=== PATIENT | female | born 1930 | race Caucasian/White ===

== ENCOUNTER → 2018-06-18 | Outpatient (CLI) | payer MEDICARE ==
[2013-08-09 10:25] VITALS: BP 158/71
[~2018-06-18] MED LIST: ASCO500T55 PO; ASPI-482 PO; ATOR20TA PO; CALC1TAB75 PO; LOSA25TA54 PO; MULT-658 PO; OMEP20CA10 PO
--- NOTE | 2018-06-18 13:05 | KCIC ---
Bilateral digital screening mammograms with 3-D tomosynthesis: Reason for examination: Routine screening. No previous examinations available for comparison. New baseline. Bilateral mammograms in CC and oblique projections were obtained with 2-D imaging and 3-D tomosynthesis imaging on a Siemens Inspiration unit and reviewed on the workstation. Interpretation was made with the benefit of CAD. The skin and nipples show no abnormalities. No abnormal axillary lymph nodes are seen. The breast parenchyma shows scattered fatty and fibroglandular density. (Breast density: Category B.) There appears to be some nodular asymmetry present in the right breast at the 12:00 and 10:00 positions anteriorly. Recommend further evaluation with coned compression views in CC and lateral projections and right breast ultrasound. There are no other dominant masses, suspicious calcifications or architectural distortion. Impression: Nodular asymmetries anteriorly in the right breast. Recommend further evaluation with coned compression views and ultrasound. BI-RADS Category 0: Incomplete. Needs additional imaging evaluation. "Our facility is accredited by the [employer] Mammography [employer]." This patient's information has been entered into a reminder system for the patient to be notified with the results of her examination and a target date for the next mammogram. Electronically signed by: Grace Hinton MD (06/18/2018 1:02 PM) [id number]
== END | disposition home or self-care (01) ==
LOC: KCIC MAMMO 11:45
PROVIDERS: ATTEND Family Medicine
DX: Z12.31 Encounter for screening mammogram for malignant neoplasm of breast (principal)
CPT/HCPCS: 77063; 77067

== ENCOUNTER → 2018-06-26 | Outpatient (CLI) | payer MEDICARE ==
[2013-08-09 10:25] VITALS: BP 158/71
--- NOTE | 2018-06-26 14:15 | KCIC ---
Right breast diagnostic digital mammograms: Reason for examination: Nodularity to the parenchyma on screening mammogram. Comparison is made to a new baseline examination dated 06/18/2018. Cone compression views were obtained in CC and lateral projections. With these additional views, the areas of nodularity appear to represent patches of superimposed fibroglandular tissue. Further evaluation with ultrasound will follow. IMPRESSION: No suspicious abnormalities with the additional views. Ultrasound to follow. BI-RADS Category 0: Incomplete. Needs additional imaging evaluation. Right breast ultrasound: Ultrasound examination was performed with attention to the upper outer quadrant and axilla. There is some patchy fibroglandular tissue with some minimal fibrocystic changes. No suspicious nodules are seen. No abnormal appearing lymph nodes are seen in the axilla. IMPRESSION: Minimal fibrocystic changes at the 10:00 position with no suspicious abnormality seen in the right breast. Recommend routine mammographic follow-up. BI-RADS Category 2: Benign. "Our facility is accredited by the [employer] Mammography [employer]." This patient's information has been entered into a reminder system for the patient to be notified with the results of her examination and a target date for the next mammogram. Electronically signed by: Grace Hinton MD (06/26/2018 2:11 PM) [id number]
== END | disposition home or self-care (01) ==
LOC: KCIC MAMMO 08:48
PROVIDERS: ATTEND Family Medicine
DX: R92.8 Other abnormal and inconclusive findings on diagnostic imaging of breast (principal); Z88.0 Allergy status to penicillin
CPT/HCPCS: 76641; 77065

== ENCOUNTER → 2020-08-14 | Outpatient (CLI) | payer MEDICARE ==
[2013-08-09 10:25] VITALS: BP 158/71
[~2020-08-14] MED LIST changes: +CALC-627 PO; -CALC1TAB75 PO; -OMEP20CA10 PO; +OMEP20CA16 PO
--- NOTE | 2020-08-14 13:44 | RAD ---
EXAM: Carotid Doppler sonogram. HISTORY: Stroke. Atherosclerosis. Stenosis. TECHNIQUE: Cummings scale and color Doppler sonographic evaluation of the neck with spectral waveform prem lysis was performed and static images are submitted for review. FINDINGS: The peak systolic velocity within the right common carotid artery is 87 cm/sec. The peak sy stolic velocity within the right internal carotid artery is 73 cm/sec and the end diastolic velocity within the right internal carotid artery is 15 cm/sec. The right ICA/CCA ratio is 0.83. The peak systolic velocity within the left common carotid artery is 99 cm/sec. The peak systolic [place] within the left internal carotid artery is 78 cm/sec and the end diastolic velocity within the l eft internal carotid artery is 16 cm/sec. The left ICA/CCA ratio is 0.80. There is normal antegrade flow within both vertebral arteries. IMPRESSION: No Doppler evidence of greater than 50 percent stenosis involving the internal carotid ar teries. PQRS Compliance Statement - Stenosis calculations for CT, MR and conventional angiography are based u fidelia measurement of the distal ICA diameter in accordance with the NASCET methodology. Stenosis calcu lations for carotid ultrasound studies are derived from validated velocity criteria which are known t o correlate with the NASCET methodology. Electronically signed by: Dia Sanders MD (08/14/2020 1:42 PM) [facility]
--- NOTE | 2020-08-14 16:51 | CARD ---
MR#: [id number] Date of Study: 08/14/2020 Ordering Physician: MONIQUE LEOS, Referring Physician: MONIQUE LEOS, Tech: Catrina Jamesалександр, [facility] APPROVED REPORT EXAM: Two-dimensional and M-mode echocardiogram with Doppler and color Doppler. Other Information Quality : AverageHR: 79bpm INDICATION CVA/TIA RISK FACTORS Hypertension Hyperlipidemia 2D DIMENSIONS RVDd2.7 (2.9-3.5cm)Left Atrium(2D)3.2 (1.6-4.0cm) IVSd1.0 (0.7-1.1cm)Aortic Root(2D)2.9 (2.0-3.7cm) LVDd4.3 (3.9-5.9cm)LVOT Diameter2.0 (1.8-2.4cm) PWd0.9 (0.7-1.1cm)LVDs2.6 (2.5-4.0cm) FS (%) 40.0 %SV60.2 ml LVEF(%)70.9 (>50%) Aortic Valve AoV Peak Ben.122.1cm/sAoV VTI25.2cm AO Peak GR.6.0mmHgLVOT Peak Ben.102.9cm/s LVOT VTI 21.48cmAO Mean GR.3mmHg ZEE (VMAX)2.24pl7QMR (VTI)2.60cm2 Mitral Valve MV E Nudkznut27.0cm/sMV E Peak Gr.155mmHg MV DECEL [id number] A Whfctbvd94.5cm/s MV E Mean Gr.2mmHgMV [id number] E/A Ratio1.0MVA (PHT)3.63cm2 TDI E/Lateral E'12.0E/Medial E'17.1 Pulmonary Valve PV Peak Taqzpybd05.1cm/sPV Peak Grad.4mmHg Tricuspid Valve TR P. Tewoucph219ab/sRAP [id number] TR Peak Gr.33gnOdHAQU30asIx Pulmonary Vein S1 Cyubydfr78.4cm/sD2 Erhfplub56.0cm/s PVa [id number] LEFT VENTRICLE The left ventricle is normal size. There is normal left ventricular wall thickness. The left ventricu lar systolic function is normal and the ejection fraction is within normal range. The Ejection Fracti on is 55-60%. There is normal LV segmental wall motion. Transmitral Doppler flow pattern is Grade II- pseudonormal filling dynamics. RIGHT VENTRICLE The right ventricle is normal size. There is normal right ventricular wall thickness. The right ventr icular systolic function is normal. ATRIA The left atrium size is normal. The right atrium size is normal. The interatrial septum is intact wit h no evidence for an atrial septal defect or patent foramen ovale as noted on 2-D or Doppler imaging. AORTIC VALVE The aortic valve is normal in structure and function. Doppler and Color Flow revealed trace aortic re gurgitation. There is no significant aortic valvular stenosis. Calculated aortic valve area is 2.44 c m2 with maximum pressure gradient of 7 mmHg and mean pressure gradient of 4 mmHg. MITRAL VALVE The mitral valve is normal in structure and function. There is no evidence of mitral valve prolapse. There is no mitral valve stenosis. Doppler and Color-flow revealed trace to mild mitral regurgitation . TRICUSPID VALVE The tricuspid valve is normal in structure and function. Doppler and Color Flow revealed moderate tri cuspid regurgitation with an estimated PAP of 45 mmHg. There is mild pulmonary hypertension. There is no tricuspid valve stenosis. PULMONIC VALVE The pulmonic valve is not well visualized. Doppler and Color Flow revealed trace pulmonic valvular re gurgitation. There is no pulmonic valvular stenosis. GREAT VESSELS The aortic root is normal in size. The ascending aorta is normal in size. The IVC is normal in size a nd collapses >50% with inspiration. PERICARDIAL EFFUSION There is no evidence of significant pericardial effusion. Critical Notification Critical Value: No <Conclusion> The left ventricular systolic function is normal and the ejection fraction is within normal range. Th e Ejection Fraction is 55-60%. There is normal LV segmental wall motion. Doppler and Color Flow revealed moderate tricuspid regurgitation with an estimated PAP of 45 mmHg. Th ere is mild pulmonary hypertension. Signed by : Ross Lewis, Electronically Approved : 08/14/2020 16:50:59
== END ==
LOC: ECHO 11:20
PROVIDERS: ATTEND Nurse Practitioner Family
DX: I08.3 Combined rheumatic disorders of mitral, aortic and tricuspid valves (principal); I27.20 Pulmonary hypertension, unspecified; Z86.73 Personal history of transient ischemic attack (TIA), and cerebral infarction without residual deficits
CPT/HCPCS: 93306; 93880